=== PATIENT | male | born 1940 | race Caucasian/White ===

== ENCOUNTER 2018-05-22 12:16 | Inpatient (IN) | payer MEDICARE ==
[~2018-05-22] VITALS: Ht 172.7 cm; Wt 69.3 kg
[~2018-05-22 12:16] MED LIST: AEC81 PO; CHOL200013 PO; METO-408 PO; MIRT30TA6 PO; OMEP40CA37 PO; POTASSIUM PO; SIMV40TA59 PO
[2018-05-22] MEDS ORDERED: ONDANSETRON HCL 4 MG/2 ML VIAL ONE (13:26)
[2018-05-22] MEDS ORDERED: CLINDAMYCIN 900 MG/D5% WATER 50 ML IV ONE (13:26)
[2018-05-22] MEDS ORDERED: MORPHINE SULFATE 4 MG/1ML SYG ONE (13:27)
[2018-05-22 13:28] LABS: BASOPHILS % (AUTO) 0.4 % (0.0-5.0); EOSINOPHILS % (AUTO) 0.2 % (0.0-8.0); HEMATOCRIT 45.5 % (42-54); LYMPHOCYTES % (AUTO) 6.8 % (21.0-51.0); MEAN CORPUSCULAR HEMOGLOBIN 31.6 pg (27.0-33.0); MEAN CORPUSCULAR HGB CONC 34.4 g/dL (32.0-36.0); MEAN CORPUSCULAR VOLUME 91.8 fL (79-99); MONOCYTES % (AUTO) 7.8 % (3.0-13.0); NEUTROPHILS % (AUTO) 84.8 % (40.0-77.0); NUCLEATED RED BLOOD CELLS 0.1 % (0.0-0.19); PLATELET COUNT (AUTO) 230 K/uL (130-400); RED BLOOD CELL COUNT(AUTO) 4.96 MIL/uL (4.50-6.20); RED CELL DISTRIBUTION WIDTH 12.7 % (11.0-15.5); WHITE BLOOD COUNT (AUTO) 11.9 K/uL (4.8-10.8)
[2018-05-22 13:35] LABS: POTASSIUM 3.3 mmol/L (3.5-5.1)
[2018-05-22 13:40] LABS: ALBUMIN 3.7 g/dL (3.5-5.0); BILIRUBIN,DIRECT 0.1 mg/dL (0.0-0.3); BILIRUBIN,TOTAL 0.5 mg/dL (0.2-1.0); TOTAL PROTEIN, SERUM 8.1 g/dL (6.0-8.3)
[2018-05-22 13:49] LABS: INR 0.95 (0.85-1.15); PARTIAL THROMBOPLASTIN TIME 33.6 SEC (26.3-35.5)
[2018-05-22] MEDS ORDERED: IOHEXOL-350 50ML VIAL IV ONE (14:54)
[2018-05-22] MEDS ORDERED: LIDOCAINE HCL 1% 20 ML VIAL ONE (15:50)
[2018-05-22] MEDS ORDERED: LIDOCAINE HCL 2% VISCOUS 15 ML UDCUP ONE (16:08)
[2018-05-22] MEDS ORDERED: LACTULOSE 20 GM/30 ML UDCUP PO PRN (18:30)
[2018-05-22] MEDS ORDERED: ACETAMINOPHEN 325 MG TAB PO PRN (18:30)
[2018-05-22] MEDS ORDERED: MORPHINE SULFATE 2 MG/ML 1ML SYG IV PRN (18:30)
[2018-05-22] MEDS ORDERED: NITROGLYCERIN 0.4 MG SL TAB SL PRN (18:30)
[2018-05-22] MEDS ORDERED: HYDROCODONE/ACETAMINOPHEN 5/325 MG TAB PO PRN (18:30)
[2018-05-22] MEDS ORDERED: ONDANSETRON HCL 4 MG/2 ML VIAL IV PRN (18:30)
[2018-05-22] MEDS: CLINDAMYCIN 600 MG/D5% WATER 50 ML IV SCH (18:30)
[2018-05-22] MEDS ORDERED: HYDRALAZINE HCL 20 MG/ML VIAL IV PRN (18:30)
[2018-05-22] MEDS ORDERED: METRONIDAZOLE 500MG/100ML BAG 100 ML ONE (19:36)
[2018-05-22] MEDS: METRONIDAZOLE 500MG/100ML BAG 100 ML IV SCH (20:00)
[2018-05-22] MEDS ORDERED: FAMOTIDINE/PF 20 MG/2 ML VIAL IV ONE (21:10)
[2018-05-22] MEDS ORDERED: CLINDAMYCIN 600 MG/D5% WATER 50 ML IV ONE (21:10)
[2018-05-22] MEDS ORDERED: SODIUM CHLORIDE 0.9% 100 ML IV ONE (23:21)
[2018-05-23] MEDS ORDERED: METO-408 PO (00:09)
[2018-05-23] MEDS ORDERED: LOSA25TA41 PO (00:09)
[2018-05-23] MEDS ORDERED: SIMV40TA5 PO (00:09)
[2018-05-23] MEDS ORDERED: ASPI-555 PO (00:09)
[2018-05-23] MEDS ORDERED: OMEP40CA37 PO (00:09)
[2018-05-23] MEDS ORDERED: MIRT-73 PO (00:09)
[2018-05-23] MEDS ORDERED: CHOL200074 PO (00:09)
[2018-05-23 00:20] VITALS: BP 134/79
[2018-05-23] MEDS: DEXAMETHASONE SOD PHOSPHATE 4 MG/ML 1ML VIAL IVP SCH ×4 (01:29→19:55)
[2018-05-23] MEDS: CLINDAMYCIN 600 MG/D5% WATER 50 ML IV SCH ×3 (01:33→19:56)
[2018-05-23] MEDS: METRONIDAZOLE 500MG/100ML BAG 100 ML IV SCH ×3 (04:41→20:22)
[2018-05-23 05:02] LABS: HEMATOCRIT 41.1 % (42-54); MEAN CORPUSCULAR HEMOGLOBIN 31.1 pg (27.0-33.0); MEAN CORPUSCULAR HGB CONC 33.7 g/dL (32.0-36.0); MEAN CORPUSCULAR VOLUME 92.4 fL (79-99); PLATELET COUNT (AUTO) 194 K/uL (130-400); RED BLOOD CELL COUNT(AUTO) 4.45 MIL/uL (4.50-6.20); RED CELL DISTRIBUTION WIDTH 12.8 % (11.0-15.5); WHITE BLOOD COUNT (AUTO) 7.7 K/uL (4.8-10.8)
[2018-05-23 05:29] LABS: CREATININE 1.1 mg/dL (0.5-1.5); POTASSIUM 3.3 mmol/L (3.5-5.1)
[2018-05-23 06:00] LABS: ERYTHROCYTE SEDIMENTATION RATE 35 MM/HR (0-20)
[2018-05-23 07:01] VITALS: BP 117/75
[2018-05-23] MEDS: CHOLECALCIFEROL 2000 UNIT PO SCH (09:00)
[2018-05-23] MEDS: ENOXAPARIN SODIUM 40 MG/0.4 ML SYRINGE SQ SCH (09:00)
[2018-05-23] MEDS: ***HM***Metoprolol Succinate 25 MG PO SCH (09:00)
[2018-05-23] MEDS ORDERED: NON-FORMULARY MEDICATION 1 EACH (Omeprazole 40 MG) PO SCH (09:00)
[2018-05-23] MEDS: ASPIRIN 81MG TAB.CHEW PO SCH (09:30)
[2018-05-23] MEDS: FAMOTIDINE/PF 20 MG/2 ML VIAL IV SCH (09:30)
[2018-05-23] MEDS: LOSARTAN 50 MG TABLET PO SCH (09:31)
[2018-05-23 12:00] VITALS: BP 136/96
[2018-05-23] MEDS: POTASSIUM CHLORIDE 10% ELIXIR 20 MEQ/15 ML UDCUP PO SCH ×2 (15:23→20:22)
[2018-05-23 16:00] VITALS: BP 144/89
--- NOTE | 2018-05-23 17:29 | NUR ---
INITIAL: Met with pt this afternoon to discuss dcp. Pt states that he lives w his spouse in a mobile home. He is independent w ambulation and aDLs. does not own any DME or receive services. Per pt he feels safe and comfortable to [place]. Will continue to follow and wait for Md recommendations. Addendum: 05/24/18 at 1831 by JERRY VIZCAINO CM Amended: Links added.
[2018-05-23 19:08] VITALS: BP 123/72
[2018-05-23] MEDS: SIMVASTATIN 20 MG TABLET PO SCH (20:21)
[2018-05-23] MEDS: MIRTAZAPINE 15 MG TABLET PO SCH (20:22)
[2018-05-24 00:18] VITALS: BP 122/78
[2018-05-24] MEDS: DEXAMETHASONE SOD PHOSPHATE 4 MG/ML 1ML VIAL IVP SCH ×5 (00:33→23:44)
[2018-05-24] MEDS: CLINDAMYCIN 600 MG/D5% WATER 50 ML IV SCH ×3 (03:05→18:39)
[2018-05-24] MEDS: METRONIDAZOLE 500MG/100ML BAG 100 ML IV SCH ×3 (03:05→20:42)
[2018-05-24 04:28] VITALS: BP 104/67
[2018-05-24 08:00] VITALS: BP 137/80
[2018-05-24 08:07] LABS: LYMPHOCYTES % (AUTO) 5.4 % (21.0-51.0); MEAN CORPUSCULAR HEMOGLOBIN 31.2 pg (27.0-33.0); MEAN CORPUSCULAR VOLUME 91.7 fL (79-99); MONOCYTES % (AUTO) 2.3 % (3.0-13.0); NEUTROPHILS % (AUTO) 92.3 % (40.0-77.0); PLATELET COUNT (AUTO) 226 K/uL (130-400); RED BLOOD CELL COUNT(AUTO) 4.58 MIL/uL (4.50-6.20); RED CELL DISTRIBUTION WIDTH 12.4 % (11.0-15.5); WHITE BLOOD COUNT (AUTO) 9.2 K/uL (4.8-10.8)
[2018-05-24 08:48] LABS: POTASSIUM 3.9 mmol/L (3.5-5.1)
[2018-05-24] MEDS: CHOLECALCIFEROL 2000 UNIT PO SCH (09:00)
[2018-05-24] MEDS: ***HM***Metoprolol Succinate 25 MG PO SCH (09:00)
[2018-05-24] MEDS: ENOXAPARIN SODIUM 40 MG/0.4 ML SYRINGE SQ SCH (09:00)
[2018-05-24] MEDS: LOSARTAN 50 MG TABLET PO SCH (09:27)
[2018-05-24] MEDS: ASPIRIN 81MG TAB.CHEW PO SCH (09:27)
[2018-05-24] MEDS: POTASSIUM CHLORIDE 10% ELIXIR 20 MEQ/15 ML UDCUP PO SCH (09:27)
[2018-05-24] MEDS: FAMOTIDINE/PF 20 MG/2 ML VIAL IV SCH (09:27)
[2018-05-24 12:00] VITALS: BP 121/74
[2018-05-24 16:00] VITALS: BP 133/83
[2018-05-24 19:12] VITALS: BP 133/84
[2018-05-24] MEDS: MIRTAZAPINE 15 MG TABLET PO SCH (20:42)
[2018-05-24] MEDS: SIMVASTATIN 20 MG TABLET PO SCH (20:42)
[2018-05-25 00:22] VITALS: BP 150/85
--- NOTE | 2018-05-25 00:30 | NUR ---
STATUS Pt denies pain or discomfort.
[2018-05-25] MEDS: CLINDAMYCIN 600 MG/D5% WATER 50 ML IV SCH ×2 (02:35→11:12)
[2018-05-25 04:12] VITALS: BP 135/81
[2018-05-25] MEDS: METRONIDAZOLE 500MG/100ML BAG 100 ML IV SCH ×2 (04:34→11:12)
[2018-05-25] MEDS: DEXAMETHASONE SOD PHOSPHATE 4 MG/ML 1ML VIAL IVP SCH ×2 (05:47→11:12)
[2018-05-25 05:52] LABS: HEMATOCRIT 41.3 % (42-54); LYMPHOCYTES % (AUTO) 4.7 % (21.0-51.0); MEAN CORPUSCULAR HEMOGLOBIN 31.7 pg (27.0-33.0); MEAN CORPUSCULAR HGB CONC 34.6 g/dL (32.0-36.0); MEAN CORPUSCULAR VOLUME 91.5 fL (79-99); MONOCYTES % (AUTO) 2.6 % (3.0-13.0); NEUTROPHILS % (AUTO) 92.7 % (40.0-77.0); PLATELET COUNT (AUTO) 236 K/uL (130-400); RED BLOOD CELL COUNT(AUTO) 4.51 MIL/uL (4.50-6.20); RED CELL DISTRIBUTION WIDTH 12.8 % (11.0-15.5); WHITE BLOOD COUNT (AUTO) 9.2 K/uL (4.8-10.8)
[2018-05-25 06:06] LABS: CREATININE 1.1 mg/dL (0.5-1.5); POTASSIUM 4.2 mmol/L (3.5-5.1)
[2018-05-25 07:30] VITALS: BP 159/90
[2018-05-25] MEDS: FAMOTIDINE/PF 20 MG/2 ML VIAL IV SCH (08:54)
[2018-05-25] MEDS: LOSARTAN 50 MG TABLET PO SCH (08:54)
[2018-05-25] MEDS: CHOLECALCIFEROL 2000 UNIT PO SCH (08:54)
[2018-05-25] MEDS: ASPIRIN 81MG TAB.CHEW PO SCH (08:54)
[2018-05-25] MEDS: ***HM***Metoprolol Succinate 25 MG PO SCH (08:55)
[2018-05-25] MEDS: ENOXAPARIN SODIUM 40 MG/0.4 ML SYRINGE SQ SCH (08:56)
[2018-05-25] MEDS ORDERED: CLIN300C9 PO (09:03)
[2018-05-25 11:00] VITALS: BP_SYST 136; BP_SYST 159; BP_DIAS 72; BP_DIAS 90
[2018-05-25 16:00] VITALS: BP 131/73
== END 2018-05-25 17:35 | disposition home or self-care (01) | DRG 134 ==
LOC: EDH 12:16 → EDHIP 18:16 → 3DH 22:30
PROVIDERS: ADMIT Internal Medicine; ATTEND Internal Medicine
PROC: 0C9PXZZ Drainage of Tonsils, External Approach (ICD-10-PCS; principal; 2018-05-22)
DX: J36 Peritonsillar abscess (principal); E78.5 Hyperlipidemia, unspecified; E87.6 Hypokalemia; I10 Essential (primary) hypertension; Z82.49 Family history of ischemic heart disease and other diseases of the circulatory system; Z87.891 Personal history of nicotine dependence; Z88.0 Allergy status to penicillin; Z80.1 Family history of malignant neoplasm of trachea, bronchus and lung; Z79.899 Other long term (current) drug therapy
CPT/HCPCS: 36415; 70491; 80048; 80076; 84702; 85025; 85027; 85610; 85651; 85730; 86140; 87040; G0378; J1100; J1650; J2270; J2405; J3490; Q9967

== ENCOUNTER 2018-05-29 16:16 | Observation (INO) | payer MEDICARE ==
[~2018-05-29 16:16] MED LIST changes: -AEC81 PO; +ASPI-555 PO; -CHOL200013 PO; +CHOL200074 PO; +CLIN300C9 PO; +LOSA25TA41 PO; +MIRT-73 PO; -MIRT30TA6 PO; -POTASSIUM PO; +SIMV40TA5 PO; -SIMV40TA59 PO
[2018-05-29 16:50] LABS: BASOPHILS % (AUTO) 0.3 % (0.0-5.0); EOSINOPHILS % (AUTO) 0.5 % (0.0-8.0); HEMATOCRIT 44.2 % (42-54); LYMPHOCYTES % (AUTO) 7.3 % (21.0-51.0); MEAN CORPUSCULAR HEMOGLOBIN 30.8 pg (27.0-33.0); MEAN CORPUSCULAR HGB CONC 33.4 g/dL (32.0-36.0); MEAN CORPUSCULAR VOLUME 92.2 fL (79-99); MONOCYTES % (AUTO) 7.9 % (3.0-13.0); PLATELET COUNT (AUTO) 263 K/uL (130-400); RED BLOOD CELL COUNT(AUTO) 4.79 MIL/uL (4.50-6.20); WHITE BLOOD COUNT (AUTO) 11.2 K/uL (4.8-10.8)
[2018-05-29 16:56] LABS: CREATININE 1.2 mg/dL (0.5-1.5)
[2018-05-29 17:03] LABS: ALBUMIN 3.1 g/dL (3.5-5.0); BILIRUBIN,TOTAL 0.5 mg/dL (0.2-1.0); TOTAL PROTEIN, SERUM 6.8 g/dL (6.0-8.3)
[2018-05-29 17:10] LABS: CREATINE KINASE, TOTAL 28 U/L (21-232); MYOGLOBIN 28 ng/mL (10-92); TROPONIN I < 0.04 ng/mL (0.00-0.06)
[2018-05-29] MEDS ORDERED: ASPIRIN 325 MG TABLET ONE (17:36)
[2018-05-29] MEDS ORDERED: ONDANSETRON HCL 4 MG/2 ML VIAL IV PRN (19:30)
[2018-05-29] MEDS ORDERED: ACETAMINOPHEN 325 MG TAB PO PRN ×2 (19:30)
[2018-05-29] MEDS ORDERED: HYDRALAZINE HCL 20 MG/ML VIAL IV PRN (19:30)
[2018-05-29] MEDS ORDERED: MORPHINE SULFATE 4 MG/1ML SYG IV PRN (19:30)
[2018-05-29] MEDS ORDERED: NITROGLYCERIN 1GM/1 INCH PACKET TD SCH (19:30)
[2018-05-29] MEDS ORDERED: FAMOTIDINE 20MG TAB 20 MG TAB ONE (20:55)
[2018-05-29] MEDS ORDERED: ENOXAPARIN SODIUM 30 MG/0.3 ML SQ ONE (20:55)
[2018-05-29] MEDS ORDERED: NITROGLYCERIN 1GM/1 INCH PACKET TD ONE (20:56)
[2018-05-29] MEDS ORDERED: FAMOTIDINE/PF 20 MG/2 ML VIAL IV SCH (21:00)
[2018-05-29] MEDS ORDERED: METOPROLOL TARTRATE 25 MG TAB PO SCH (21:00)
[2018-05-29] MEDS ORDERED: ENOXAPARIN SODIUM 30 MG/0.3 ML SQ SCH (21:00)
[2018-05-30] MEDS ORDERED: PANTOPRAZOLE SODIUM 40 MG TABLET.DR PO SCH (09:00)
[2018-05-30] MEDS ORDERED: LOSARTAN 50 MG TABLET PO SCH (09:00)
[2018-05-30] MEDS ORDERED: ASPIRIN 325 MG TABLET PO SCH (09:00)
[2018-05-30] MEDS ORDERED: PANTOPRAZOLE SODIUM 40 MG TABLET.DR PO ONE (11:22)
[2018-05-30] MEDS ORDERED: ENOXAPARIN SODIUM 30 MG/0.3 ML SQ ONE (11:22)
[2018-05-30] MEDS ORDERED: NITROGLYCERIN 1GM/1 INCH PACKET TD ONE (11:23)
[2018-05-30] MEDS ORDERED: METOPROLOL TARTRATE 25 MG TAB ONE (11:23)
[2018-05-30] MEDS ORDERED: SIMVASTATIN 20 MG TABLET PO SCH (17:00)
[2018-05-30] MEDS ORDERED: MIRTAZAPINE 15 MG TABLET PO SCH (17:00)
--- NOTE | 2018-05-30 17:20 | NUR ---
PIV removed and patient sent home with prescription; copy in chart
[2018-05-31] MEDS ORDERED: ASPIRIN 81MG TAB.CHEW PO SCH (09:00)
[2018-05-31] MEDS ORDERED: ENOXAPARIN SODIUM 30 MG/0.3 ML SQ SCH (09:00)
== END 2018-05-30 17:15 | disposition home or self-care (01) ==
LOC: EDH 16:16 → EDHIP 17:15
PROVIDERS: ADMIT Internal Medicine; ATTEND Internal Medicine
DX: R07.89 Other chest pain (principal); I10 Essential (primary) hypertension; K29.70 Gastritis, unspecified, without bleeding; F17.210 Nicotine dependence, cigarettes, uncomplicated; Z82.49 Family history of ischemic heart disease and other diseases of the circulatory system; Z82.5 Family history of asthma and other chronic lower respiratory diseases; Z88.0 Allergy status to penicillin; Z79.899 Other long term (current) drug therapy
CPT/HCPCS: 36415; 71045; 80053; 82550; 83874; 84484 ×3; 85025; 93005 ×2; 99284; G0378 ×23; J1650 ×2